=== PATIENT | female | born 1960 | race Caucasian/White ===

== ENCOUNTER 2016-07-05 14:12 | Outpatient (CLI) | payer OTHER ==
--- NOTE | 2016-07-05 14:45 | DIAGNOSTIC IMAGING REPORT ---
PROCEDURE: XR SINUSES LESS THAN 3 VIEWS INDICATION: CHRONIC SINUS INF TECHNIQUE: Water's view COMPARISON: None. FINDINGS: Bilateral maxillary sinus air fluid levels. Remaining paranasal sinuses are clear. Bones are unremarkable. IMPRESSION: 1. Acute bilateral maxillary sinusitis 2. Results discussed with Phyllis Mcmanus
--- NOTE | 2016-07-05 14:46 | DIAGNOSTIC IMAGING REPORT ---
PROCEDURE: XR CHEST 2 VIEW INDICATION: COUGH SINUS TECHNIQUE: PA and lateral view. COMPARISON: None. FINDINGS: Minor parenchymal changes in the left lung base which may be due to of pericardial fat pad, atelectasis or less likely an infiltrate. Cardiovascular structures are normal. Bony thorax is unremarkable. IMPRESSION: 1. Mild left basilar parenchymal changes. Consider pericardial fat pad, atelectasis or less likely infiltrate 2. Results discussed with Phyllis Mcmanus
[2016-08-21] MEDS ORDERED: ESTRADIOL0.1 MG/24 TOP (13:27)
[2016-08-21] MEDS ORDERED: MOTRIN100 MG/5 M PO (13:28)
[2016-08-21] MEDS ORDERED: MULTIVITAMIN1 TAB PO (13:28)
== END 2016-07-05 23:00 ==
LOC: XR SRH 14:12
DX: R05 Cough (principal); J01.00 Acute maxillary sinusitis, unspecified